=== PATIENT | male | born 1950 | race Hispanic/Latino ===

== ENCOUNTER 2021-12-24 14:53 | Inpatient (IN) | payer OTHER, SELFPAY ==
[~2021-12-24] VITALS: Ht 160 cm; Wt 90.9 kg
[2021-12-24 10:28] LABS: BASOPHILS % (AUTO) 0.6 % (0.0-5.0); EOSINOPHILS % (AUTO) 1.3 % (0.0-8.0); LYMPHOCYTES % (AUTO) 26.7 % (21.0-51.0); MEAN CORPUSCULAR HEMOGLOBIN 29.4 pg (27.0-33.0); MEAN CORPUSCULAR HGB CONC 32.6 g/dL (32.0-36.0); PLATELET COUNT (AUTO) 270 K/uL (130-400); RED BLOOD CELL COUNT(AUTO) 5.11 MIL/uL (4.50-6.20); RED CELL DISTRIBUTION WIDTH 13.3 % (11.0-15.5); WHITE BLOOD COUNT (AUTO) 10.1 K/uL (4.8-10.8)
[~2021-12-24 14:53] MED LIST: DULA1.5P SQ; EMPA25TA PO; GLIP-162 PO; LEVO75CA5 PO; LISI5TAB21 PO; METF-446 PO; SIMV80TA91 PO
[2021-12-27] VITALS (18 sets, daily range): BP systolic 87–137; BP diastolic 41–79
[2021-12-27] MEDS: CEFAZOLIN SODIUM 1 GM VIAL IVP SCH ×3 (06:00→23:25)
[2021-12-27] MEDS ORDERED: 0.9%NACL 1000ML 1,000 ML IV ONE (09:40)
[2021-12-27] MEDS ORDERED: ROPIVACAINE 0.5% 5MG/ML 30ML IJ ONE (14:38)
[2021-12-27] MEDS ORDERED: DEXAMETHASONE SOD PHOSPHATE 10MG/ML 1ML VIAL ONE (14:38)
[2021-12-27] MEDS ORDERED: MIDAZOLAM HCL 1 MG/ML 2ML VIAL ONE (15:12)
[2021-12-27] MEDS ORDERED: LIDOCAINE PF 100MG/5ML (2%) SYRINGE 5ML ONE (15:13)
[2021-12-27] MEDS ORDERED: ROCURONIUM 10MG/1ML SYR 10 MG/ML ML ONE ×2 (15:13→16:48)
[2021-12-27] MEDS ORDERED: PROPOFOL 10 MG/ML 20ML VIAL IV ONE (15:13)
[2021-12-27] MEDS ORDERED: TRANEXAMIC ACID 1000MG/10ML ONE ×2 (15:40→19:38)
[2021-12-27] MEDS ORDERED: PHENYLEPHRINE HCL 10 MG/ML 1ML VIAL IV ONE ×2 (16:00→17:56)
[2021-12-27] MEDS ORDERED: CEFAZOLIN SODIUM 1 GM VIAL IRRIG ONE ×2 (16:15→16:30)
[2021-12-27] MEDS ORDERED: EPHEDRINE SULFATE 50 MG/ML AMPULE ONE (17:28)
[2021-12-27] MEDS ORDERED: ONDANSETRON 4MG INJ ONE (18:32)
[2021-12-27] MEDS ORDERED: NEOSTIGMINE 5MG/5ML SYR IV ONE (18:32)
[2021-12-27] MEDS ORDERED: GLYCOPYRROLATE 1 MG/5 ML SYRINGE ONE (18:32)
[2021-12-27] MEDS ORDERED: POTASSIUM CHLORIDE 20MEQ/100ML 100 ML IV PRN (19:00)
[2021-12-27] MEDS ORDERED: FE FUMARATE/FA/MV, MIN COMB#15 1 TAB PO PRN (19:00)
[2021-12-27] MEDS ORDERED: POTASSIUM CHLORIDE 10% ELIXIR 20 MEQ/15 ML UDCUP PO PRN (19:00)
[2021-12-27] MEDS ORDERED: TRAMADOL HCL 50 MG TABLET PO PRN (19:00)
[2021-12-27] MEDS ORDERED: CALCIUM CARB 500MG PO PRN (19:00)
[2021-12-27] MEDS ORDERED: KCL 20 MEQ ERTAB PO PRN (19:00)
[2021-12-27] MEDS ORDERED: ONDANSETRON 4MG INJ IVP PRN (19:00)
[2021-12-27] MEDS ORDERED: DiphenhydrAMINE HCL 50 MG/ML VIAL IVP PRN (19:00)
[2021-12-27] MEDS ORDERED: TEMAZEPAM 15 MG CAPSULE PO PRN (19:00)
[2021-12-27] MEDS ORDERED: LIDOCAINE HCL-MPF 1% 2ML VIAL IV PRN (19:00)
[2021-12-27] MEDS ORDERED: KETOROLAC 15MG/ML VIAL (15MG/ML) IV PRN (19:00)
[2021-12-27] MEDS: INSULIN HUMULIN R 100 UNIT/ML 3ML SQ SCH (21:00)
[2021-12-27] MEDS: ACETAMINOPHEN 500 MG TABLET PO SCH (21:38)
[2021-12-27] MEDS: PREGABALIN 25 MG CAP PO SCH (21:39)
[2021-12-27] MEDS: ASPIRIN 81 MG EC TAB PO SCH (21:39)
[2021-12-27] MEDS: CELECOXIB 200 MG CAP PO SCH (21:39)
[2021-12-27] MEDS: FAMOTIDINE 20MG TAB PO SCH (21:39)
[2021-12-27] MEDS ORDERED: TAMS-1 PO (21:57)
[2021-12-27] MEDS: 0.9%NACL 1000ML 1,000 ML IV SCH (23:25)
[2021-12-28] VITALS (9 sets, daily range): BP systolic 88–110; BP diastolic 53–70
[2021-12-28 03:42] LABS: HEMATOCRIT 36.1 % (42-54); MEAN CORPUSCULAR HEMOGLOBIN 29.1 pg (27.0-33.0); MEAN CORPUSCULAR HGB CONC 32.1 g/dL (32.0-36.0); MEAN CORPUSCULAR VOLUME 90.7 fL (79-99); RED BLOOD CELL COUNT(AUTO) 3.98 MIL/uL (4.50-6.20); RED CELL DISTRIBUTION WIDTH 13.5 % (11.0-15.5); WHITE BLOOD COUNT (AUTO) 15.8 K/uL (4.8-10.8)
[2021-12-28 03:57] LABS: CREATININE 0.9 mg/dL (0.5-1.5); POTASSIUM 4.1 mmol/L (3.5-5.1)
[2021-12-28] MEDS: ACETAMINOPHEN 500 MG TABLET PO SCH ×3 (05:19→18:45)
[2021-12-28] MEDS: LEVOTHYROXINE 75 MCG TABLET PO SCH (06:21)
[2021-12-28] MEDS: INSULIN HUMULIN R 100 UNIT/ML 3ML SQ SCH ×5 (06:22→20:46)
[2021-12-28] MEDS ORDERED: NON-FORMULARY MEDICATION 1 EACH (Metformin HCl 500 MG) PO SCH (08:00)
[2021-12-28] MEDS: CEFAZOLIN SODIUM 1 GM VIAL IVP SCH (08:28)
[2021-12-28] MEDS: METFORMIN HCL 500 MG TABLET PO SCH ×2 (08:32→16:40)
[2021-12-28] MEDS: ASPIRIN 81 MG EC TAB PO SCH ×2 (08:34→20:44)
[2021-12-28] MEDS: CELECOXIB 200 MG CAP PO SCH ×2 (08:34→20:44)
[2021-12-28] MEDS: FAMOTIDINE 20MG TAB PO SCH ×2 (08:35→20:44)
[2021-12-28] MEDS: GLIPIZIDE XL 5MG TAB PO SCH (08:35)
[2021-12-28] MEDS: TAMSULOSIN HCL 0.4 MG CAP.ER.24H PO SCH (08:36)
[2021-12-28] MEDS: EMPAGLIFLOZIN 12.5 MG PO SCH (08:38)
[2021-12-28] MEDS: PREGABALIN 25 MG CAP PO SCH (08:38)
[2021-12-28] MEDS: POLYETHYLENE GLYCOL 3350 17 GM POWD.PACK PO SCH ×2 (08:39→09:00)
[2021-12-28] MEDS: Dulaglutide (Trulicity) 1.5 MG SQ SCH (08:39)
[2021-12-28] MEDS ORDERED: NON-FORMULARY MEDICATION 1 EACH (Levothyroxine Sodium (Levothyroxine) 75 MCG) PO SCH (09:00)
[2021-12-28] MEDS ORDERED: LISINOPRIL 2.5 MG TABLET PO SCH (09:00)
[2021-12-28] MEDS ORDERED: 0.9% NACL 500ML IV.SOLN 500 ML IV ONE (13:29)
[2021-12-28] MEDS ORDERED: 0.9% NACL 500ML IV.SOLN 500 ML IV SCH (13:30)
[2021-12-28] MEDS: 0.9%NACL 1000ML 1,000 ML IV SCH (15:00)
[2021-12-28] MEDS ORDERED: SIMVASTATIN 20 MG TABLET PO SCH (21:00)
[2021-12-28] MEDS ORDERED: NON-FORMULARY MEDICATION 1 EACH (Simvastatin 40 MG) PO SCH (21:00)
[2021-12-28] MEDS: OXYCODONE HCL 5 MG TAB PO PRN (23:13)
[2021-12-29 03:34] VITALS: BP 104/57
[2021-12-29] MEDS: OXYCODONE HCL 5 MG TAB PO PRN ×3 (05:15→17:22)
[2021-12-29] MEDS: ACETAMINOPHEN 500 MG TABLET PO SCH ×2 (05:16→11:17)
[2021-12-29] MEDS: LEVOTHYROXINE 75 MCG TABLET PO SCH (05:16)
[2021-12-29 05:20] LABS: HEMATOCRIT 34.2 % (42-54); MEAN CORPUSCULAR HEMOGLOBIN 29.7 pg (27.0-33.0); MEAN CORPUSCULAR HGB CONC 32.2 g/dL (32.0-36.0); MEAN CORPUSCULAR VOLUME 92.4 fL (79-99); RED BLOOD CELL COUNT(AUTO) 3.7 MIL/uL (4.50-6.20); RED CELL DISTRIBUTION WIDTH 13.8 % (11.0-15.5); WHITE BLOOD COUNT (AUTO) 12.5 K/uL (4.8-10.8)
[2021-12-29] MEDS: INSULIN HUMULIN R 100 UNIT/ML 3ML SQ SCH ×3 (05:27→16:30)
[2021-12-29] MEDS: GLIPIZIDE XL 5MG TAB PO SCH (07:57)
[2021-12-29] MEDS: FAMOTIDINE 20MG TAB PO SCH (07:58)
[2021-12-29] MEDS: CELECOXIB 200 MG CAP PO SCH (07:58)
[2021-12-29] MEDS: ASPIRIN 81 MG EC TAB PO SCH (07:58)
[2021-12-29] MEDS: POLYETHYLENE GLYCOL 3350 17 GM POWD.PACK PO SCH (07:59)
[2021-12-29] MEDS: TAMSULOSIN HCL 0.4 MG CAP.ER.24H PO SCH (07:59)
[2021-12-29] MEDS: EMPAGLIFLOZIN 12.5 MG PO SCH (07:59)
[2021-12-29 08:00] VITALS: BP 113/76
[2021-12-29] MEDS: METFORMIN HCL 500 MG TABLET PO SCH (08:04)
[2021-12-29] MEDS: Dulaglutide (Trulicity) 1.5 MG SQ SCH (09:00)
[2021-12-29 11:28] VITALS: BP 102/66
[2021-12-29] MEDS ORDERED: HYDR-4060 PO (15:51)
[2021-12-30] MEDS ORDERED: BISACODYL 10 MG SUPP.RECT RC PRN (19:00)
== END 2021-12-29 18:55 | disposition home health service (06) | DRG 483 ==
LOC: EDSTATUS 15:00 → DAHIP 12-27 08:16 → 4AH 12-27 20:16
PROVIDERS: ADMIT Orthopaedic Surgery; ATTEND Orthopaedic Surgery
PROC: 0RRK0JZ Replacement of Left Shoulder Joint with Synthetic Substitute, Open Approach (ICD-10-PCS; principal; 2021-12-27 16:11)
PROC: 3E0T3BZ Introduction of Anesthetic Agent into Peripheral Nerves and Plexi, Percutaneous Approach (ICD-10-PCS; 2021-12-27 16:11)
PROC: 3E0T33Z Introduction of Anti-inflammatory into Peripheral Nerves and Plexi, Percutaneous Approach (ICD-10-PCS; 2021-12-27 16:11)
DX: M19.012 Primary osteoarthritis, left shoulder (principal); D64.9 Anemia, unspecified; I10 Essential (primary) hypertension; E78.5 Hyperlipidemia, unspecified; E03.9 Hypothyroidism, unspecified; E11.9 Type 2 diabetes mellitus without complications; N40.0 Benign prostatic hyperplasia without lower urinary tract symptoms; Z96.651 Presence of right artificial knee joint; Z83.3 Family history of diabetes mellitus; Z82.49 Family history of ischemic heart disease and other diseases of the circulatory system
CPT/HCPCS: 36415; 73030; 80048; 82948; 85025; 85027; 87088; 87635; 87641; 97039; A4565; C1776; G0378; J0690; J1100; J1815; J2001; J2250; J2370; J2405; J2704; J2710; J2795; J3490; J7030; J7040; J7120

== ENCOUNTER 2022-12-29 11:41 | Emergency (ER) | payer OTHER ==
[~2022-12-29] VITALS: Ht 160 cm; Wt 90.7 kg
[~2022-12-29 11:41] MED LIST changes: +HYDR-4060 PO; +TAMS-1 PO
[2022-12-29 12:29] VITALS: BP 117/65
[2022-12-29] MEDS ORDERED: IBUP-2070 PO (13:03)
== END 2022-12-29 13:21 | disposition home or self-care (01) ==
LOC: EDH 11:41
DX: S93.402A Sprain of unspecified ligament of left ankle, initial encounter (principal); E11.9 Type 2 diabetes mellitus without complications; I10 Essential (primary) hypertension; E78.00 Pure hypercholesterolemia, unspecified; W19.XXXA Unspecified fall, initial encounter; Y93.89 Activity, other specified; Y92.89 Other specified places as the place of occurrence of the external cause; Y99.8 Other external cause status
CPT/HCPCS: 73610

== ENCOUNTER → 2023-03-31 | Outpatient (CLI) | payer MEDICARE ==
[~2023-03-31] MED LIST changes: +IBUP-2070 PO
== END | disposition home or self-care (01) ==
LOC: RAH 13:42
PROVIDERS: ATTEND Physical Medicine & Rehabilitation
DX: M48.04 Spinal stenosis, thoracic region (principal)
CPT/HCPCS: 72146

== ENCOUNTER 2023-06-05 12:00 | Observation (INO) | payer MEDICARE ==
[~2023-06-05] VITALS: Ht 160 cm; Wt 95.3 kg
[2023-06-05 11:09] LABS: BASOPHILS # (AUTO) 0.08 K/uL (0.00-0.20); BASOPHILS % (AUTO) 0.7 % (0.0-5.0); EOSINOPHILS # (AUTO) 0.11 K/uL (0.00-0.70); HEMATOCRIT 44.3 % (42-54); IMMATURE GRANULOCYTE ABSOLUTE 0.06 K/uL (0-1); LYMPHOCYTES # (AUTO) 2.4 K/uL (1.0-4.8); LYMPHOCYTES % (AUTO) 21.3 % (21.0-51.0); MEAN CORPUSCULAR HEMOGLOBIN 30.8 pg (27.0-33.0); MEAN CORPUSCULAR HGB CONC 33.6 g/dL (32.0-36.0); MEAN CORPUSCULAR VOLUME 91.5 fL (79-99); MONOCYTES # (AUTO) 0.9 K/uL (0.1-1.0); MONOCYTES % (AUTO) 8.1 % (3.0-13.0); NEUTROPHILS # (AUTO) 7.6 K/uL (1.8-7.7); NEUTROPHILS % (AUTO) 68.4 % (40.0-77.0); PLATELET COUNT (AUTO) 290 K/uL (130-400); RED BLOOD CELL COUNT(AUTO) 4.84 MIL/uL (4.50-6.20); RED CELL DISTRIBUTION WIDTH 13.4 % (11.0-15.5); WHITE BLOOD COUNT (AUTO) 11.1 K/uL (4.8-10.8)
[2023-06-05 11:37] LABS: CREATININE 0.9 mg/dL (0.5-1.5); POTASSIUM 4.5 mmol/L (3.5-5.1)
[~2023-06-05 12:00] MED LIST changes: -GLIP-162 PO; -HYDR-4060 PO; -IBUP-2070 PO; -LISI5TAB21 PO; -METF-446 PO
[2023-06-05] MEDS ORDERED: GLIP5TAB11 PO (14:01)
[2023-06-05] MEDS ORDERED: MULT-1367 PO (14:01)
[2023-06-05] MEDS ORDERED: OMEG-53 PO (14:01)
[2023-06-05] MEDS ORDERED: LISI5TAB21 PO (14:01)
[2023-06-05] MEDS ORDERED: METF-446 PO (14:01)
[2023-06-05 14:02] VITALS: BP 127/73; PULSE 71; RESP 14
[2023-06-08] VITALS (30 sets, daily range): BP systolic 103–163; BP diastolic 56–97; PULSE 62–104; RESP 12–20; O2SAT 96
[2023-06-08] MEDS ORDERED: CEFAZOLIN SODIUM 2 GM VIAL ONE (06:13)
[2023-06-08] MEDS ORDERED: 0.9%NACL 1000ML 1,000 ML IV ONE (06:13)
[2023-06-08] MEDS ORDERED: DEXAMETHASONE SOD PHOSPHATE 10MG/ML 1ML VIAL ONE ×2 (06:51→06:54)
[2023-06-08] MEDS ORDERED: LIDOCAINE PF 100MG/5ML (2%) SYRINGE 5ML ONE (06:51)
[2023-06-08] MEDS ORDERED: PROPOFOL 10 MG/ML 20ML VIAL IV ONE ×2 (06:51→10:29)
[2023-06-08] MEDS ORDERED: SUCCINYLCHOLINE CHLORIDE 20 MG/ML 10 ML VIAL ONE ×2 (06:51→10:33)
[2023-06-08] MEDS ORDERED: ROCURONIUM 10MG/1ML SYR 10 MG/ML ML ONE ×2 (06:52→08:10)
[2023-06-08] MEDS ORDERED: NEOSTIGMINE 5MG/5ML SYR IV ONE (06:52)
[2023-06-08] MEDS ORDERED: MIDAZOLAM HCL 1 MG/ML 2ML VIAL ONE (06:52)
[2023-06-08] MEDS ORDERED: GLYCOPYRROLATE 1 MG/5 ML SYRINGE ONE (06:52)
[2023-06-08] MEDS ORDERED: ONDANSETRON 4MG INJ ONE ×2 (06:52→06:53)
[2023-06-08] MEDS ORDERED: FENTANYL CITRATE PF 50 MCG/1 ML 2ML VIAL ONE ×2 (06:53→08:08)
[2023-06-08] MEDS ORDERED: LIDOCAINE 2%-EPI PF 30 ML+BUPIVACAINE/PF 0.25% 30ML /60ML SYR IJ SCH ×2 (07:00)
[2023-06-08] MEDS ORDERED: PROPOFOL 1000 MG/100 ML 100 ML IV ONE (07:01)
[2023-06-08] MEDS ORDERED: CEFAZOLIN SODIUM 1 GM VIAL ONE ×2 (07:03→11:30)
[2023-06-08] MEDS ORDERED: THROMBIN-JMI 5000 UNIT/VIAL TP ONE (07:03)
[2023-06-08] MEDS ORDERED: MANNITOL 20% IV ONE (07:23)
[2023-06-08] MEDS ORDERED: GENTAMICIN SULFATE 80 MG/2 ML VIAL ONE (07:23)
[2023-06-08 07:25] LABS: BASOPHILS # (AUTO) 0.05 K/uL (0.00-0.20); BASOPHILS % (AUTO) 0.5 % (0.0-5.0); EOSINOPHILS # (AUTO) 0.18 K/uL (0.00-0.70); EOSINOPHILS % (AUTO) 1.8 % (0.0-8.0); HEMATOCRIT 41.2 % (42-54); IMMATURE GRANULOCYTE ABSOLUTE 0.06 K/uL (0-1); LYMPHOCYTES # (AUTO) 2.5 K/uL (1.0-4.8); LYMPHOCYTES % (AUTO) 24.8 % (21.0-51.0); MEAN CORPUSCULAR HEMOGLOBIN 30.8 pg (27.0-33.0); MEAN CORPUSCULAR HGB CONC 33.5 g/dL (32.0-36.0); MONOCYTES # (AUTO) 0.9 K/uL (0.1-1.0); MONOCYTES % (AUTO) 9.1 % (3.0-13.0); NEUTROPHILS # (AUTO) 6.4 K/uL (1.8-7.7); NEUTROPHILS % (AUTO) 63.2 % (40.0-77.0); PLATELET COUNT (AUTO) 272 K/uL (130-400); RED BLOOD CELL COUNT(AUTO) 4.48 MIL/uL (4.50-6.20); RED CELL DISTRIBUTION WIDTH 13.6 % (11.0-15.5); WHITE BLOOD COUNT (AUTO) 10.1 K/uL (4.8-10.8)
[2023-06-08] MEDS ORDERED: PHENYLEPHRINE HCL 10 MG/ML 1ML VIAL IV ONE ×2 (08:12→10:26)
[2023-06-08] MEDS ORDERED: EPHEDRINE SULFATE 50 MG/ML AMPULE ONE (08:16)
[2023-06-08] MEDS ORDERED: ARTIFICIAL TEARS 3.5 GM OINTMENT ONE (08:22)
[2023-06-08] MEDS ORDERED: NOREPINEPHRINE BITARTRATE 1 MG/1 ML ML IV ONE (08:35)
[2023-06-08] MEDS ORDERED: FENTANYL CITRATE PF 50 MCG/1 ML 5ML AMP IV ONE (09:39)
[2023-06-08] MEDS ORDERED: CEFAZOLIN SODIUM 2 GM VIAL IVPB ONE (11:30)
[2023-06-08] MEDS ORDERED: PROMETHAZINE HCL 25 MG/ML 1ML AMPULE IM PRN ×3 (12:00→13:30)
[2023-06-08] MEDS ORDERED: 0.9%NACL 10ML VIAL IVP PRN ×3 (12:00→13:30)
[2023-06-08] MEDS ORDERED: LACTATED RINGERS 1000ML 1,000 ML IV SCH ×2 (12:00→13:30)
[2023-06-08] MEDS ORDERED: MORPHINE 2 MG SYG IVP PRN ×2 (13:00→13:30)
[2023-06-08] MEDS ORDERED: DEXAMETHASONE SOD PHOSPHATE 4 MG/ML 1ML VIAL IVP SCH ×2 (13:00→13:30)
[2023-06-08] MEDS ORDERED: HYDROCODONE/ACETAMINOPHEN 5/325 MG TAB PO PRN ×2 (13:00→13:30)
[2023-06-08] MEDS: LACTATED RINGERS 1000ML 1,000 ML IV SCH (13:00)
[2023-06-08] MEDS: EPA PO SCH ×2 (14:00→20:33)
[2023-06-08] MEDS: FISH OIL PO SCH ×2 (14:00→20:33)
[2023-06-08] MEDS: OMEGA PO SCH ×2 (14:00→20:33)
[2023-06-08] MEDS: D3 PO SCH ×2 (14:00→20:33)
[2023-06-08] MEDS: DHA PO SCH ×2 (14:00→20:33)
[2023-06-08] MEDS: DEXAMETHASONE SOD PHOSPHATE 4 MG/ML 1ML VIAL IVP SCH ×2 (15:29→20:18)
[2023-06-08] MEDS: CEFAZOLIN SODIUM 2 GM VIAL IVPB SCH ×2 (15:30→20:18)
[2023-06-08] MEDS: METFORMIN HCL 500 MG TABLET PO SCH (16:53)
[2023-06-08] MEDS: HYDROCODONE/ACETAMINOPHEN 5/325 MG TAB PO PRN (18:53)
[2023-06-08] MEDS: GLIPIZIDE 5 MG TABLET PO SCH (20:17)
[2023-06-08] MEDS: INSULIN HUMULIN R 100 UNIT/ML 3ML SQ SCH (20:39)
[2023-06-08] MEDS ORDERED: NON-FORMULARY MEDICATION 1 EACH (Metformin HCl 1,000 MG) PO SCH (21:00)
[2023-06-08] MEDS ORDERED: ATORVASTATIN 20 MG TABLET PO SCH (21:00)
[2023-06-08] MEDS ORDERED: NON-FORMULARY MEDICATION 1 EACH (Simvastatin 40 MG) PO SCH (21:00)
[2023-06-08] MEDS: MORPHINE 2 MG SYG IVP PRN (21:56)
[2023-06-09] MEDS: HYDROCODONE/ACETAMINOPHEN 5/325 MG TAB PO PRN ×2 (00:19→07:41)
[2023-06-09] MEDS: DEXAMETHASONE SOD PHOSPHATE 4 MG/ML 1ML VIAL IVP SCH ×2 (01:32→06:17)
[2023-06-09] MEDS: LACTATED RINGERS 1000ML 1,000 ML IV SCH (02:20)
[2023-06-09 04:02] VITALS: BP 109/69; PULSE 62; RESP 18
[2023-06-09] MEDS: CEFAZOLIN SODIUM 2 GM VIAL IVPB SCH (04:13)
[2023-06-09] MEDS: MORPHINE 2 MG SYG IVP PRN (04:20)
[2023-06-09] MEDS: INSULIN HUMULIN R 100 UNIT/ML 3ML SQ SCH (05:45)
[2023-06-09] MEDS ORDERED: LEVOTHYROXINE 75 MCG TABLET PO SCH (06:30)
[2023-06-09 08:00] VITALS: BP 125/74; PULSE 68; RESP 20; O2SAT 96
[2023-06-09] MEDS ORDERED: LISINOPRIL 5 MG TABLET PO SCH (09:00)
[2023-06-09] MEDS: D3 PO SCH (09:00)
[2023-06-09] MEDS ORDERED: NON-FORMULARY MEDICATION 1 EACH (Levothyroxine Sodium (Levothyroxine) 75 MCG) PO SCH (09:00)
[2023-06-09] MEDS ORDERED: EMPAGLIFLOZIN 25MG TABLET PO SCH (09:00)
[2023-06-09] MEDS ORDERED: NON-FORMULARY MEDICATION 1 EACH (Multivitamin 1 EACH) PO SCH (09:00)
[2023-06-09] MEDS ORDERED: TAMSULOSIN HCL 0.4 MG CAP.ER.24H PO SCH (09:00)
[2023-06-09] MEDS ORDERED: MULTIVITAMIN TABLET PO SCH (09:00)
[2023-06-09] MEDS: FISH OIL PO SCH (09:00)
[2023-06-09] MEDS: OMEGA PO SCH (09:00)
[2023-06-09] MEDS: DHA PO SCH (09:00)
[2023-06-09] MEDS ORDERED: Dulaglutide (Trulicity) 1.5 MG SQ SCH (09:00)
[2023-06-09] MEDS: EPA PO SCH (09:00)
[2023-06-09] MEDS: METFORMIN HCL 500 MG TABLET PO SCH (09:18)
[2023-06-09] MEDS: GLIPIZIDE 5 MG TABLET PO SCH (09:19)
== END 2023-06-09 12:30 | disposition home or self-care (01) ==
LOC: EDSTATUS 12:00 → DAHIP 06-08 05:43 → UNDOADMOB 06-08 13:07 → DAHIP 06-08 13:07 → 4DH 06-08 14:25
PROVIDERS: ADMIT Neurological Surgery; ATTEND Neurological Surgery
DX: M48.04 Spinal stenosis, thoracic region (principal); Z20.822 Contact with and (suspected) exposure to COVID-19; I10 Essential (primary) hypertension; E11.9 Type 2 diabetes mellitus without complications; E03.9 Hypothyroidism, unspecified; E78.5 Hyperlipidemia, unspecified; G99.2 Myelopathy in diseases classified elsewhere; M54.16 Radiculopathy, lumbar region; N40.0 Benign prostatic hyperplasia without lower urinary tract symptoms; K66.0 Peritoneal adhesions (postprocedural) (postinfection); Z79.899 Other long term (current) drug therapy; Z98.890 Other specified postprocedural states
CPT/HCPCS: 80048; 85025 ×2; 87426; 36415 ×2; 71045; 63048; 63046; 96376 ×2; 96365; 96366 ×2; 96375; 82948 ×4; 72020; A6260; G0378 ×22; G0379; A4510; A4663; J7030 ×2; J7120 ×3; A4344; J3010 ×3; J0690 ×8; J3490 ×7; J1100 ×8; J2710; J0330 ×2; J2270 ×2; J2001; J1580; J2250; J2704 ×3; J2405 ×2; J2371 ×2; A4649 ×2; A4215; A4223; A4222; A4221; A4600

== ENCOUNTER → 2024-06-25 | Outpatient (CLI) | payer MEDICARE ==
[~2024-06-25] MED LIST changes: +GLIP5TAB15 PO; +LISI5TAB21 PO; +METF-446 PO; +MULT-1367 PO; +OMEG-53 PO
== END | disposition home or self-care (01) ==
LOC: RAH 14:37
PROVIDERS: ATTEND Physical Medicine & Rehabilitation
DX: M48.04 Spinal stenosis, thoracic region (principal); M47.814 Spondylosis without myelopathy or radiculopathy, thoracic region; R26.0 Ataxic gait; R26.89 Other abnormalities of gait and mobility
CPT/HCPCS: 72146

== ENCOUNTER → 2024-12-30 | Outpatient (CLI) | payer OTHER ==
--- NOTE | 2024-12-30 14:06 | HMCIMG ---
CT HEART SAVER PROMOTIONAL HISTORY: Calcium scoring COMPARISON: None TECHNIQUE: Computed tomography of the heart was performed with ECG gating and suspended respiration. Postprocessing was performed on a computer workstation to obtain diastolic phase images, determine calcium score and provide a quantitative assessment of extent of disease. This CT included only the heart. HeartSaver score is 2001.1. Please see cardiac calcium score report. The available CT chest images show no acute finding. CT was performed with one or more following dose reduction techniques: automated exposure control, adjustment of the mA and kv according to patient's size, or use of a iterative reconstruction technique.
== END | disposition home or self-care (01) ==
LOC: RAH 13:05
PROVIDERS: ATTEND Internal Medicine Cardiovascular Disease
DX: Z13.6 Encounter for screening for cardiovascular disorders (principal)
CPT/HCPCS: 75571

== ENCOUNTER → 2025-02-06 | Outpatient (CLI) | payer MEDICARE ==
[~2025-02-06] MED LIST changes: -LEVO75CA5 PO; +LEVO75CA6 PO; +REGADENOSON 0.4 MG/5 ML PF SYG IVP ONE; -TAMS-1 PO; +TAMS-55 PO
--- NOTE | 2025-02-06 14:15 | HMCSR ---
APPROVED REPORT Height: 5 ft 3in Weight: 198 lbs TEST INDICATIONS CAD The imaging protocol used to acquire images was Rest Tc-99m/stress Tc-99m 1 day Consent: The procedure was explained and understood by the patient. Informerd consent was witnessed Naveed Guthrie RN First, low dose rest was performed then high dose stress. RESTING DATA: The resting ekg shows: NSR Rest SPECT myocardial perfusion imaging was performed in supine position minutes following the intra venous injection of 12 mCi of Tc-99 Sestamibi. Time of rest injection: 08:58: Date: 02/06/2025 PHARMACOLOGIC STRESS: Pharmacologic stress test was performed by injecting regadenoson 0.4 mg IV push followed by the intra venous injection of 29 mCi of Tc-99 Sestamibi. Time of stress injection: 10:58: Date: 02/06/2025 Heart Rate at time of stress injection: 54 bpm. The images were gated to evaluate regional wall motion and calculate left ventricular ejection fracti on. STRESS DETAILS Reason for Termination: Infusion complete Stress Symptoms: Dyspnea Max HR Achieved: 84 bpm % of APMHR Achieved: 67 Max Blood Pressure: 116/74 mmHg Stress ECG: NSR Study quality was good. Lung uptake was Normal. Artifact: No artifact IMPRESSION Normal pharmacologic nuclear stress test. Conclusion Normal perfusion. TID 0.78. LVEF 67%.
== END | disposition home or self-care (01) ==
LOC: RAH 08:33
PROVIDERS: ATTEND Internal Medicine Cardiovascular Disease
DX: I25.10 Atherosclerotic heart disease of native coronary artery without angina pectoris (principal); R06.00 Dyspnea, unspecified
CPT/HCPCS: 78452; 93017; J2785; A9500 ×2